=== PATIENT | male | born 1995 | race Caucasian/White ===

== ENCOUNTER 2017-10-30 19:27 | Emergency (ER) | payer BC, OTHER ==
[2017-10-30] MEDS ORDERED: TETRACAINE HCL 0.5% OPH SOLN 2 ML OU ONE (21:05)
--- NOTE | 2017-10-30 21:39 | ER Document Report ---
ED Eye Complaint - General Chief Complaint: Eye Problem Stated Complaint: EYE PAIN Time Seen by Provider: 10/30/17 20:57 Mode of Arrival: Ambulatory Information source: Patient TRAVEL OUTSIDE OF THE [place] IN LAST 30 DAYS: No - HPI Patient complains to provider of: right eye pain Onset: Just prior to arrival Eye location: Right Occurred at: Work Notes: Patient is here with complaints of foreign body in his right eye. 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 He did not feel anything in particular get into his eye. When he got into his truck he rubs his right eye and then felt like there was something stuck in his right upper lid. States he still continues to feel like there is something stuck under his right lid. He denies any blurred or loss vision. He does complain of some tearing to the eye. He denies any photophobia. Immunizations up-to-date. No nausea, vomiting, diarrhea. No numbness, tingling, weakness. No traumatic injury. No drainage. He denies any other complaints. - Related Data Allergies/Adverse Reactions: NSAIDS (Non-Steroidal Anti-Inflamma Allergy (Verified 10/30/17 20:59) blood thinners Adverse Reaction (Uncoded 10/30/17 20:59) Past Medical History - Social History Smoking Status: Current Every Day Smoker Frequency of alcohol use: Rare Drug Abuse: None Family History: Reviewed & Not Pertinent Patient has suicidal ideation: No Patient has homicidal ideation: No Renal/ Medical History: Denies: Hx Peritoneal Dialysis GI Medical History: Reports: Hx Ulcer - ITP Past Surgical History: Reports: Hx Vascular Surgery - portacath Review of Systems - Review of Systems -: Yes All other systems reviewed and negative Physical Exam - Vital signs Vitals: Temp Pulse Resp BP Pulse Ox 98.6 F 86 18 157/96 H 97 10/30/17 19:39 10/30/17 19:39 10/30/17 19:39 10/30/17 19:39 10/30/17 19:39 - Notes Notes: GENERAL: alert, cooperative, nontoxic, no distress. HEAD: normocephalic, atraumatic EYES: Mild injection to the right conjunctive. Pupils equal round react to light. No hyphema. Extra muscles are intact bilaterally. No corneal foreign body identified. After inverting the upper eyelid, was able to visualize a small yellow colored foreign body stuck under the upper lid. This was easily removed with a sterile cotton tipped applicator. Fluorescein exam shows no corneal abrasions, dendritic lesions. Negative Mally sign. No drainage. EARS: no external swelling, no external redness NOSE: atraumatic, no external swelling MOUTH/THROAT: mucous membranes moist and pink NECK: soft, supple, full range of motion, no meningismus. CHEST: no distress, lungs clear and equal throughout. No wheezing, rales, rhonchi. CARDIAC: regular rate and rhythm, no murmur, normal capillary refill, normal pulses. BACK: full range of motion, no CVA tenderness. EXTREMITIES: full range of motion of all extremities. No redness, no swelling. NEURO: alert and oriented 3, no focal deficits, full range of motion of all extremities. PYSCH: appropriate mood, affect. Patient is cooperative. SKIN: pink, warm, dry, no rash. - HEENT Visual acuity- Right eye: 20/30 Visual acuity- Left eye: 20/25 Visual acuity- Both eyes: 20/25 Corrective lenses worn: Yes Course - Re-evaluation Re-evalutation: 10/30/17 21:37 Patient is nontoxic-appearing with stable vitals. Patient is here with complaints of something under his right eyelid. On exam he is noted to have a small foreign body stuck under his right eyelid. I was able to easily remove this with a cotton tipped applicator. He had no corneal abrasions or dendritic lesions. Remainder of his eye exam is unremarkable aside from some injection. No drainage. This point the patient was instructed to use artificial tears or saline to irrigate his eye. Follow-up with ophthalmology if not better in the next 2 days, follow-up sooner for increasing pain, fever, drainage, redness around the eye, or for any further concerns. The patient's emergency department workup and current diagnosis were explained to the patient and or family. Follow-up instructions were provided. Medications if prescribed were discussed. Instructions for when to return to the emergency department including specific worrisome symptoms were discussed with the patient and/or family. The patient is noted to have elevated blood pressure during today's emergency department visit. The patient was informed of this finding. The patient was instructed that this may be related to pre-hypertension and requires further evaluation with a primary care provider. The patient has no hypertensive symptoms at this time. - Vital Signs Vital signs: Temp Pulse Resp BP Pulse Ox 98.6 F 86 18 157/96 H 97 10/30/17 19:39 10/30/17 19:39 10/30/17 19:39 10/30/17 19:39 10/30/17 19:39 Discharge - Discharge Clinical Impression: Foreign body of right eye Qualifiers: Encounter type: initial encounter Qualified Code(s): T15.91XA - Foreign body on external eye, part unspecified, right eye, initial encounter Condition: Stable Disposition: HOME, SELF-CARE Instructions: Conjunctival Foreign Body ([facility]) Additional Instructions: Use artificial tears or saline drops to irrigate I. Follow-up with ophthalmology if not better in 2 days, sooner for worsening pain, fever, redness , drainage, difficulty with vision, or for any further concerns. Your blood pressure was elevated during today's visit. Have this rechecked with your doctor. Forms: Elevated Blood Pressure, Smoking Cessation Education Referrals: JESUS ALBERTO CROCKETT MD [ACTIVE STAFF] - Follow up as needed
[2017-10-30 21:48] VITALS: BP 126/65
== END 2017-10-30 21:48 | disposition home or self-care (01) ==
LOC: ER 19:27
DX: T15.91XA Foreign body on external eye, part unspecified, right eye, initial encounter (principal); X58.XXXA Exposure to other specified factors, initial encounter; Y93.H3 Activity, building and construction; Y92.009 Unspecified place in unspecified non-institutional (private) residence as the place of occurrence of the external cause; Y99.0 Civilian activity done for income or pay; R03.0 Elevated blood-pressure reading, without diagnosis of hypertension; F17.200 Nicotine dependence, unspecified, uncomplicated
CPT/HCPCS: 99283